=== PATIENT | female | born 1940 | race Caucasian/White ===

== ENCOUNTER 2019-01-25 14:14 | Outpatient (CLI) | payer MEDICARE ==
--- NOTE | 2019-01-25 15:39 | RAD ---
LEFT SHOULDER 3 VIEWS: HISTORY: Left shoulder pain following an injury from a fall. 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 No acute fracture or dislocation. POS: [facility]
--- NOTE | 2019-01-25 15:39 | RAD ---
EXAM: RIGHT SHOULDER THREE VIEWS: History: Right shoulder pain following a fall. FINDINGS/IMPRESSION: Degenerative changes and osteoarthrosis changes involving the AC joint and glenohumeral joint without fracture, dislocation, or other acute process. POS: [facility]
== END 2019-01-25 14:15 | disposition home or self-care (01) ==
LOC: BICRAD 14:14
PROVIDERS: ATTEND Specialist
DX: M25.511 Pain in right shoulder (principal); M25.512 Pain in left shoulder; M19.011 Primary osteoarthritis, right shoulder; M19.012 Primary osteoarthritis, left shoulder